=== PATIENT | female | born 1940 | race Caucasian/White ===

== ENCOUNTER → 2016-12-25 | Outpatient (CLI) | payer MEDICARE, OTHER ==
[~2016-12-25] MED LIST: OXY IR DPS5 MG PO; SENOKOT S1 TAB PO; SYNTHROID DPS0.1 MG PO; TYLENOL DPS325 MG PO; ULTRAM DPS50 MG PO; XARELTO10 MG PO
== END | disposition home or self-care (01) ==
LOC: RAD.S 09:41
DX: Z12.31 Encounter for screening mammogram for malignant neoplasm of breast (principal)